=== PATIENT | male | born 1990 | race Caucasian/White ===

== ENCOUNTER → 2021-08-29 | Outpatient (REF) | payer BC, OTHER ==
[~2021-08-29] MED LIST: BUSP5TA PO; TRAZ-252 PO; WELLTAB40 PO
== END ==
LOC: M SMT 17:02
PROVIDERS: ATTEND Urology
DX: Z30.2 Encounter for sterilization (principal)

== ENCOUNTER → 2024-05-16 | Outpatient (CLI) | payer OTHER | LOC: M SLEEP 20:00 | PROVIDERS: ATTEND Internal Medicine | DX: G47.33 Obstructive sleep apnea (adult) (pediatric) (principal) ==